=== PATIENT | male | born 2000 | race Caucasian/White ===

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

== ENCOUNTER 2018-11-05 07:51 | Day surgery (SDC) | payer OTHER ==
[2018-11-05] VITALS (15 sets, daily range): BP systolic 102–126; BP diastolic 47–67; PULSE 46–68; RESP 13–35; Ht 175.3 cm; Wt 76.9 kg
[~2018-11-05] VITALS: Ht 175.3 cm; Wt 76.9 kg
[~2018-11-05 07:51] MED LIST: NAPR-985 PO; TAMS-14 PO; TRAM50TA2 PO
--- NOTE | 2018-11-05 08:13 | HPN ---
Date/Time of Note Date/Time of Note DATE: 11/05/18 TIME: 08:13 Interval H&P Admission Note Pt. seen H&P reviewed: No system changes WILNER GRANT MD Nov 05, 2018 08:13
[2018-11-05] MEDS ORDERED: LACTATED RINGER'S 1,000 ML IV SCH (09:00)
[2018-11-05] MEDS ORDERED: BACITRACIN/POLYMYXIN 28.35 GM OINT TOP ONE (09:17)
[2018-11-05] MEDS ORDERED: LIDOCAINE 1%/EPI 30 ML INJ ONE (09:17)
[2018-11-05] MEDS ORDERED: PHENYLephrine 0.25% 15 ML NAS SPRAY ONE (09:17)
--- NOTE | 2018-11-05 09:19 | PREAC ---
Date/Time of Note Date/Time of Note DATE: 11/05/18 TIME: :18 Anesthesia Eval and Record Evaluation Time Pre-Procedure Interview DATE: 11/05/18 TIME: 09:18 Age 18 Sex male NPO: 8 hrs Preoperative diagnosis deviated nasal septum Planned procedure septoplasty, turbinate reduction Past Medical History Past Medical History: None Surgery & Anesthesia Issues No known issue Meds Anticoagulation: No Beta Taylor within 24 hr: No Reason Beta Taylor not given: Pt. not on B-Taylor Discontinued Scripts Tramadol HCl (Tramadol HCl) 50 Mg Tablet, 50 MG PO Q6 PRN for PAIN, #20 TAB Prov:ERON PROCTOR-C 09/12/17 Tamsulosin Hcl* (Flomax*) 0.4 Mg Cap.er.24h, 0.4 MG PO QPM, #30 CAP Prov:ERON PROCTORC 09/12/17 Naproxen* (Naprosyn*) 500 Mg Tablet, 500 MG PO BID PRN for PAIN AND/OR INFLAMMATION, #30 TAB Prov:ERON PROCTORC 09/12/17 Current Medications Lactated Ringer's 1,000 ml @ 25 mls/hr Q24H IV ; Start 11/05/18 at 09:00 Meds reviewed: Yes Allergies Coded Allergies: banana (Verified Allergy, Unknown, CHEST TIGHTNESS, 11/05/18) Allergies Reviewed: Yes Labs/Studies Labs Reviewed: Reviewed by anesthesiologist test: N/A Pre-procedure Exam Last vitals Vital Signs Date Temp Pulse Resp B/P (MAP) Pulse Ox O2 O2 Flow FiO2 Time Delivery Rate 11/05/18 98.1 55 16 117/67 99 Room Air 08:45 (84) Airway: Adequate mouth opening, Adequate thyromental dist Mallampati: Mallampati II Teeth: Normal Lung: Normal Heart: Normal ASA Physical Status ASA physical status: 1 Emergency: None Planned Anesthetic General/MAC: ETT Planned Pain Management Parenteral pain med Pre-operative Attestations Prior to commencing anesthesia and surgery, the patient was re-evaluated, there was verification of: *The patient's identity *The results of appropriate recent lab work and preoperative vital signs *The above evaluation not changing prior to induction *Anesthetic plan, risk benefits, alternative and complications discussed with patient/family; questions answered; patient/family understands, accepts and wishes to proceed. CATRINA ECHEVARRIA Nov 05, 2018 09:19
[2018-11-05] MEDS ORDERED: ROCURONIUM 50 MG INJ ONE (09:25)
[2018-11-05] MEDS ORDERED: LIDOCAINE 2% (SDV) 5 ML INJ ONE (09:25)
[2018-11-05] MEDS ORDERED: PROPOFOL 100 ML ONE (09:25)
[2018-11-05] MEDS ORDERED: LABETALOL HCL 20MG INJ ONE (09:48)
[2018-11-05] MEDS ORDERED: CEFAZOLIN 1 GM INJ ONE (09:48)
[2018-11-05] MEDS ORDERED: NEOSTIGMINE 3 MG/3 ML SYRINGE ONE ×2 (10:24→10:34)
[2018-11-05] MEDS ORDERED: GLYCOPYRROLATE 0.4 MG INJ ONE (10:24)
--- NOTE | 2018-11-05 10:33 | SIPON ---
Date/Time of Note Date/Time of Note DATE: 11/05/18 TIME: 10:31 Operative Report Preoperative Diagnosis 1. Deviated septum, 2. Left nasal valve blockage, 3. Inferior turbinate hypertrophy Postoperative Diagnosis Same Operation/Procedure Performed 1. Septoplasty; 2. Nasal valve repair via utility agent graft; 3. Inferior turbinate reduction via submucous resection Surgeon see signature line biology research assistant None Anesthesia: general Estimated blood loss: minimal Transfusion Required none Specimen Nasal septum Grafts/Implants none Complications none WILNER GRANT MD Nov 05, 2018 10:33
--- NOTE | 2018-11-05 10:38 | OPR ---
Date/Time of Note Date/Time of Note DATE: 11/05/18 TIME: 10:33 Operative Report Procedure Date: Nov 05, 2018 Preoperative Diagnosis 1. Deviated septum, 2. Left nasal valve blockage, 3. Inferior turbinate hypertrophy Postoperative Diagnosis Same Operation/Procedure Performed 1. Septoplasty; 2. Nasal valve repair via steam shovel engineer graft; 3. Inferior turbinate reduction via submucous resection Surgeon see signature line Automobile Accessories Salesperson None Anesthesia Type: general Estimated Blood Loss: minimal Transfusion none Specimen Nasal septum Grafts/Implants none Complications none Pt Condition Post Procedure: stable Disposition: PACU Indications The patient is a 18-year-old male with a long-standing history of nasal airway obstruction that has been refractory to medical management. The risks, benefits and alternatives surgery were discussed. The risks included but not limited to bleeding, infection, scar, need for the surgery, no improvement in symptoms, septal perforation, numbness to the upper teeth, change in cosmetics of the nos e, and need for further medical therapy. He understood these and signed consent. Procedure Description After informed consent was obtained, the patient was brought back to operating room. He was intubated by anesthesia and sedated. His eyes were protected and a head drape was placed. Jamie-Synephrine soaked cottonoids were inserted to nasal cavities and left for several minutes and removed. 1% lidocaine with epinephrine was injected into the nasal septum and inferior turbinates. The face was then prepped and draped in usual sterile fashion. 15 blade was used to make a left hemitransfixion incision. Bilateral mucoperichondrial flaps were elevated. The bony cartilaginous junction was disarticulated. A large deviated portion of vomer bone was removed with the Liam forceps. An inferior portion of quadrangular cartilage was harvested measuring 2 x 15 mm. The caudal septum was found deviated to the left side. This was disarticulated from the maxillary crest. Once disarticulated, the caudal septum then relaxed in a straight manner. The inferior septum was then secured to the anterior nasal spine. A 5-0 PDS suture was used. A stab incision was then made in front of the left nasal valve region. A tight pocket was created for placement of the steam shovel engineer graft between the dorsal septum and the upper lateral cartilage. The harvested graft was then placed in the pocket and the pocket closed with a 4-0 chromic suture. A stab incision was then made under the heads of both inferior turbinates. Mucoperiosteal flaps were elevated. Inferior turbinate bone was removed with a Liam forceps. Bipolar cautery was applied were needed. The hemitransfixion incision was then closed with 4-0 chromic suture. Silicone Luu splints coated in antibiotic ointment were placed bilaterally and secured with a 3-0 Prolene suture. The stomach was then suctioned. The patient was extubated by anesthesia and brought to the recovery room in stable condition. WILNER GRANT MD Nov 05, 2018 10:38
--- NOTE | 2018-11-05 10:40 | PAC ---
Date/Time of Note Date/Time of Note DATE: 11/05/18 TIME: 10:40 Post-Anesthesia Notes Post-Anesthesia Note Last documented vital signs Vital Signs Date Temp Pulse Resp B/P (MAP) Pulse Ox O2 O2 Flow FiO2 Time Delivery Rate 11/05/18 98.1 55 16 117/67 99 Room Air 1040 (84) Activity: WNL Respiratory function: WNL Cardiovascular function: WNL Mental status: Baseline Pain reasonably controlled: Yes Hydration appropriate: Yes Nausea/Vomiting absent: Yes CATRINA ECHEVARRIA Nov 05, 2018 10:40
[2018-11-05] MEDS ORDERED: ALBUTEROL 0.083% (NEB) 2.5 MG/3 ML AMP HHN PRN (11:00)
[2018-11-05] MEDS ORDERED: DIPHENHYDRAMINE 50 MG INJ IV PRN (11:00)
[2018-11-05] MEDS ORDERED: MEPERIDINE 25 MG INJ IV PRN (11:00)
[2018-11-05] MEDS ORDERED: EPHEDrine 25 MG/5 ML SYG IV PRN (11:00)
[2018-11-05] MEDS ORDERED: OXYCODONE/ACETAMINOPHEN (5/325) TAB PO PRN ×2 (11:00)
[2018-11-05] MEDS ORDERED: FENTAnyl 50 MCG/ML VIAL IV PRN ×2 (11:00)
[2018-11-05] MEDS ORDERED: HYDROmorphONE 1 MG/5 ML IV SYRINGE IV PRN ×3 (11:00)
[2018-11-05] MEDS ORDERED: hydrALAzine 20 MG INJ IV PRN (11:00)
[2018-11-05] MEDS ORDERED: LABETALOL HCL 20MG INJ IV PRN (11:00)
[2018-11-05] MEDS ORDERED: ONDANSETRON 4 MG INJ IV PRN (11:00)
[2018-11-05] MEDS: FENTAnyl 50 MCG/ML VIAL IV PRN ×2 (11:20→11:31)
== END 2018-11-05 12:38 | disposition home or self-care (01) ==
LOC: SDS 07:51
PROVIDERS: ATTEND Otolaryngology
DX: J34.2 Deviated nasal septum (principal); J34.3 Hypertrophy of nasal turbinates; J34.89 Other specified disorders of nose and nasal sinuses
CPT/HCPCS: 30140; 30520; 88300; J0690; J1170; J2405; J2710; J3010

== ENCOUNTER 2018-11-06 02:22 | Emergency (ER) | payer OTHER ==
[~2018-11-06] VITALS: Ht 177.8 cm; Wt 75.7 kg
[2018-11-06 02:24] VITALS: Ht 177.8 cm; Wt 75.7 kg
[2018-11-06] MEDS: SILVER NITRATE SWAB TOP ONE ×2 (02:51→02:54)
--- NOTE | 2018-11-06 03:36 | ERD ---
ER Documentation Chief Complaint Chief Complaint NOSEBLEED S/P SEPTOPLASTY ON 11/05/18, WORSE IN THE LAST HR HPI Is a 18-year-old male with astatus post septoplasty. He said he got acutely w orse in the last hour and was soaking through his pads. Denies fevers or chills. Denies any other current complaints. ROS All systems reviewed and are negative except as per history of present illness. Medications Home Meds Discontinued Scripts Tramadol HCl (Tramadol HCl) 50 Mg Tablet, 50 MG PO Q6 PRN for PAIN, #20 TAB Prov:ERON PROCTOR PA-C 09/12/17 Tamsulosin Hcl* (Flomax*) 0.4 Mg Cap.er.24h, 0.4 MG PO QPM, #30 CAP Prov:ERON PROCTOR PA-C 09/12/17 Naproxen* (Naprosyn*) 500 Mg Tablet, 500 MG PO BID PRN for PAIN AND/OR INF LAMMATION, #30 TAB Prov:ERON PROCTOR PA-C 09/12/17 Allergies Allergies: Coded Allergies: banana (Verified Allergy, Unknown, CHEST TIGHTNESS, 11/05/18) PMhx/Soc History of Surgery: Yes (RT KNEE SX.) Anesthesia Reaction: No Hx Neurological Disorder: No Hx Respiratory Disorders: Yes (ASTHMA) Hx Cardiac Disorders: No Hx Psychiatric Problems: No Hx Miscellaneous Medical Probl: No Hx Alcohol Use: No Hx Substance Use: No Hx Tobacco Use: No Smoking Status: Never smoker Physical Exam Vitals Vital Signs Date Temp Pulse Resp B/P (MAP) Pulse Ox O2 O2 Flow FiO2 Time Delivery Rate 11/06/18 98.7 58 18 119/60 96 02:24 (79) Physical Exam Const: No acute distress Head: Atraumatic Eyes: Normal Conjunctiva ENT: Normal External Ears, Nose and Mouth. Neck: Full range of motion. No meningismus. Resp: Clear to auscultation bilaterally Cardio: Regular rate and rhythm, no murmurs Abd: Soft, non tender, non distended. Normal bowel sounds Skin: No petechiae or rashes Back: No midline or flank tenderness Ext: No cyanosis, or edema Neur: Awake and alert Psych: Normal Mood and Affect Results 24 hrs Current Medications Medications Dose Sig/Tiffany Start Time Status Last (Trade) Ordered Route PRN Stop Time Admin Dose Reason Admin Silver 1 stick ONCE ONCE 11/06/18 DC 11/06/18 Nitrate TOP 03:00 11/06/18 02:54 (Silver 03:01 Nitrate Swabs) Procedures/MDM Medical decision makin mL postoperative bleeding. Bleeding was controlled with good hemostasis using silver nitrate sticks and gauze. Patient be discharged home to follow-up with ENT. Told to return for worsening symptoms Departure Diagnosis: Primary Impression: Postoperative complication Surgical complication system/body Area: subcutaneous tissue Surgical complication type: hemorrhage Procedure type: non-dermatologic Qualified Codes: L76.22 - Postprocedural hemorrhage of skin and subcutaneous tissue following other procedure Condition: Stable Patient Instructions: Post Op Wound Check, Bleeding DENA ADHIKARI Nov 06, 2018 03:36
[2018-11-06 03:40] VITALS: BP 117/59; PULSE 50; RESP 16
== END 2018-11-06 03:40 | disposition home or self-care (01) ==
LOC: E/R 02:22
DX: L76.22 Postprocedural hemorrhage of skin and subcutaneous tissue following other procedure (principal); J45.909 Unspecified asthma, uncomplicated